=== PATIENT | female | born 1945 | race Caucasian/White ===

== ENCOUNTER 2020-08-20 06:28 | Day surgery (SDC) | payer MEDICARE, OTHER ==
[~2020-08-20] VITALS: Ht 157.5 cm; Wt 96.3 kg
[2020-08-20 07:20] VITALS: BP 122/72; PULSE 69; TEMP 97.3
--- NOTE | 2020-08-20 07:32 | NUR ---
TO RM 7 PER AT 0647- CALL LIGHT IN REACH
[2020-08-20] MEDS ORDERED: FEMARA PO (07:35)
[2020-08-20] MEDS ORDERED: LUTEIN20 M1 PO (07:35)
[2020-08-20] MEDS ORDERED: ZIAC 5/6.25MG T1 TAB PO (07:35)
[2020-08-20] MEDS ORDERED: VITAMIN C500 MG PO (07:36)
[2020-08-20] MEDS ORDERED: CALCIUM 600MG+D1 TAB PO (07:36)
[2020-08-20 09:42] VITALS: BP 100/61; PULSE 67; TEMP 97
--- NOTE | 2020-08-20 09:42 | NUR ---
TO RM 7 PER CART FROM OR. ONLY OPENS EYES WITH TACTILE STIMULI. NO SIGNS OF PAIN OR DISTRESS AT CURREN TIME. INCISION CLEAN DRY INTACT R UPPER CHEST.
[2020-08-20] MEDS ORDERED: MOTRIN 600600 MG/TAB PO (09:44)
[2020-08-20] MEDS ORDERED: NORCO 325 MG-51 TAB PO (09:44)
[2020-08-20 10:00] VITALS: BP 115/68; PULSE 84
--- NOTE | 2020-08-20 10:00 | NUR ---
PATIENT SHIVERING AND C/O ABOUT BEING COLD. RECEIVED 2 WARM BLANKETS. CONTINUES TO BE DROWSY.
[2020-08-20 10:15] VITALS: BP 121/78; PULSE 64
--- NOTE | 2020-08-20 10:15 | NUR ---
APPEARS TO BE WARM. NO LONGER SHIVERING. CONTINUES TO SLEEP QUIETLY.
[2020-08-20 10:30] VITALS: BP 136/67; PULSE 64
--- NOTE | 2020-08-20 10:30 | NUR ---
MORE AWAKE AND RECEIVED HOT TEA. SITTING UP AND TAKING SIPS
[2020-08-20 10:35] VITALS: BP 134/68; PULSE 56
--- NOTE | 2020-08-20 10:35 | NUR ---
RECEIVED CRACKERS AND SIPPING ON HER TEA.
--- NOTE | 2020-08-20 11:00 | NUR ---
AMBULATED TO BATHROOM WITH ASSIST. VOIDED AND AMBULATED BACK TO BED. PATIENT TOLERATED WELL.
--- NOTE | 2020-08-20 11:10 | NUR ---
RECEIVED DISCHARGE INSTRUCTIONS AND VERBALIZED UNDERSTANDING. DISCONTINUED IV AND INT. PATIENT GETTING DRESSED.
--- NOTE | 2020-08-20 11:15 | NUR ---
DISCHARGED PER WC BY NURSING STAFF TO PRIVATE CAR IN CARE OF DAUGHTER JACOBY.
== END 2020-08-20 11:16 | disposition home or self-care (01) ==
LOC: SDCO 06:28
DX: C55 Malignant neoplasm of uterus, part unspecified (principal); I10 Essential (primary) hypertension; E78.00 Pure hypercholesterolemia, unspecified; Z85.3 Personal history of malignant neoplasm of breast; G70.00 Myasthenia gravis without (acute) exacerbation; Z90.710 Acquired absence of both cervix and uterus; Z90.10 Acquired absence of unspecified breast and nipple; Z20.828 Contact with and (suspected) exposure to other viral communicable diseases
CPT/HCPCS: C1788; J0690; J1644; J2704; J3010; J7120